=== PATIENT | female | born 1955 | race Caucasian/White ===

== ENCOUNTER 2017-04-12 12:34 | Emergency (ER) | payer OTHER ==
[2017-04-12 12:44] VITALS: BP 159/88; PULSE 61; TEMP 98.4; BMI 27.8
[2017-04-12] MEDS ORDERED: DIPHTH,PERTUSS(ACELL),TET 0.5 ML DISP.SYRIN IM ONE (13:19)
--- NOTE | 2017-04-12 13:30 | PDOC ---
History of Present Illness - General Chief Complaint: Injury Stated Complaint: FALL/ LACERATION Time Seen by Provider: 04/12/17 13:01 History Source: Patient Exam Limitations: No Limitations - History of Present Illness Initial Comments: 04/12/17 13:24 CHIEF COMPLAINT: Accidental fall HISTORY OF PRESENT ILLNESS: Patient is a 62-year-old female with history of hypertension and asthma states she was walking outside tripped on uneven pavement and fell sustained abrasion to right knee, left palm of hand and right forearm. Patient denies hitting her head, denies any musculoskeletal pain, denies any other injury. Tetanus is not up-to-date. MEDS: See medication list ALLERGIES: Aspirin, IV contrast REVIEW OF SYSTEMS: GENERAL/CONSTITUTIONAL: Awake alert and oriented HEAD, EYES, EARS, NOSE AND THROAT: No change in vision. No facial edema, no bruising. NO active bleeding. Nares intact. RESPIRATORY: No cough, wheezing, or hemoptysis. CARDIAC: Denies chest pain, no shortness of breathe. MUSCULOSKELETAL: No spinal point tenderness, Good ROM to all four extremeties. NO CVA tenderness. no lateral neck pain. GI/: Denies abdominal pain, no nausea or vomiting, no bloody stool, no Hematuria. SKIN : Abrasion to right forearm, left palm of hand and right knee, superficial NEUROLOGIC: No loss of consciousness, no numbness or tingling. PHYSICAL EXAM: GENERAL: Awake and alert and oriented x3. EYES: The pupils are equal, round, and reactive to light, with clear, conjunctiva. Good extraocular movement. No nystagmus NOSE: No nasal trauma . Midface stable MOUTH: Teeth intact. EARS: The ear canals and tympanic membranes are normal without trauma. No drainage. NECK: No Lower cervical C-spine tenderness, no pain with chin to chest. CHEST: The lungs are clear without crackles, or wheezes. No subcutaneous emphysema. No crepitus. HEART: Heart is regular rhythm, with normal S1 and S2, no murmurs. ABDOMEN: The abdomen is soft and nontender with normal bowel sounds. There is no guarding or rebound. MUSCULOSKELETAL: No spinal point tenderness. No bruising or erythema. Pelvis stable. EXTREMITIES: Extremities are normal. No visible traumatic injury. NEUROLOGICAL:Mental status: The patient is oriented x3. No Generalized headache , Romberg - Cranial nerves: Cranial nerves II through XII are intact Motor: The upper extremities are 5 over 5 in all muscle groups. The lower extremities are 5 over 5 in all muscle groups. Sensation: Sensation is intact to light touch throughout. Cerebellar: [id number] is normal in both upper extremities. Heel-knee- chappell is normal in both lower extremities. Reflexes: 2+ and symmetric in the upper and lower extremities. Gait: Normal. Heel and toe walking are normal. Tandem gait is normal. SKIN: Without edema, erythema or bruising. Abrasion to right forearm, left palm of hand and right knee, superficial Past History - Past Medical History Allergies/Adverse Reactions: Allergies Allergy/AdvReac Type Severity Reaction Status Date / Time aspirin Allergy Severe SWOLLEN Verified 04/12/17 12:43 FACE Iodinated Contrast- Oral and Allergy HYPOTENSION Verified 04/12/17 12:43 IV Dye [IV Dye, Iodine Containing Contrast ] SEAFOOD Allergy Severe SWOLLEN Uncoded 04/12/17 12:43 THROAT Home Medications: Ambulatory Orders Atenolol [Tenormin -] 50 mg PO DAILY 07/21/12 Gabapentin [Neurontin -] 800 mg PO BID 05/05/13 Anemia: No Asthma: Yes Cancer: No Cardiac Disorders: Yes (HEART MURMUR, MVP) CVA: No COPD: No CHF: No Dementia: No Diabetes: No GI Disorders: Yes (GASTRITIS) Disorders: Yes (RENAL CALCULI) HTN: Yes Hypercholesterolemia: Yes Liver Disease: No Seizures: No Thyroid Disease: No - Surgical History Abdominal Surgery: No Appendectomy: No Cardiac Surgery: No Cholecystectomy: No Lung Surgery: No Neurologic Surgery: Yes (BACK SX X3 SCREW INSERTED) Orthopedic Surgery: No - Immunization History Immunization Up to Date: No - Suicide/Smoking/Psychosocial Hx Smoking Status: No Smoking History: Never smoked Number of Cigarettes Smoked Daily: 0 Hx Alcohol Use: No Drug/Substance Use Hx: No Substance Use Type: None Hx Substance Use Treatment: No *Physical Exam - Vital Signs Last Vital Signs Temp Pulse Resp BP Pulse Ox 98.4 F 61 18 159/88 98 04/12/17 12:38 04/12/17 12:38 04/12/17 12:38 04/12/17 12:38 04/12/17 12:38 Medical Decision Making - Medical Decision Making 04/12/17 13:30 A/P: Patient status post mechanical fall, accidental, abrasions noted as previously documented, area cleansed with normal saline and bacitracin applied. Dressing applied. Boostrix given. Patient can take Motrin as needed for pain , follow-up as needed *DC/Admit/Observation/Transfer Diagnosis at time of Disposition: Abrasions of multiple sites Accidental fall Qualifiers: Encounter type: initial encounter Qualified Code(s): W19.XXXA - Unspecified fall, initial encounter; W19.XXXA - Unspecified fall, initial encounter - Discharge Dispostion Disposition: HOME Condition at time of disposition: Good Admit: No - Referrals Referrals: Matheus Morley MD [Primary Care Provider] - - Patient Instructions Additional Instructions: Keep areas clean and dry, with any increased redness swelling or signs of infection return to ER. Please note that her tetanus is now up to date. Recommend bacitracin daily, cleanse areas prior to application and keep covered until healed.
== END 2017-04-12 13:35 | disposition home or self-care (01) ==
LOC: SUPCPDRO 12:34 → JERFT 12:34
PROC: 3E0234Z Introduction of Serum, Toxoid and Vaccine into Muscle, Percutaneous Approach (ICD-10-PCS; principal; 2017-04-12)
DX: T14.8XXA Other injury of unspecified body region, initial encounter (principal); W01.0XXA Fall on same level from slipping, tripping and stumbling without subsequent striking against object, initial encounter; Y93.89 Activity, other specified; Y92.410 Unspecified street and highway as the place of occurrence of the external cause; I10 Essential (primary) hypertension; J45.909 Unspecified asthma, uncomplicated; R01.1 Cardiac murmur, unspecified; E78.00 Pure hypercholesterolemia, unspecified
CPT/HCPCS: 90471; 90715; 99281-25

== ENCOUNTER 2018-10-12 23:21 | Emergency (ER) | payer OTHER ==
--- NOTE | 2018-10-12 23:48 | PDOC ---
History of Present Illness - History of Present Illness Initial Comments: 10/13/18 00:45 The patient is a 63 year old female, with a significant past medical history of asthma, HTN, murmur, migraines, and recent back surgery, who presents to the emergency department for wound check. Patient notes recent neurosurgery with Dr. German to remove a bony overgrowth after a spinal fusion surgery in . Her surgery was done 10/07 and discharged 10/09 with visiting nurse follow-up 4 days ago and follow-up with her surgeon 10/21. She notes discomfort to the incision site rated a 6/10. She denies any decrease strength or sensation. She denies recent fevers, chills , headache or dizziness. She denies recent nausea, vomit, diarrhea or constipation. She denies recent dysuria, frequency, urgency or hematuria. She denies recent chest pain or shortness of breath. Allergies: Aspirin, contrast, seafood. Social history: Nonsmoker. Denies EtOH use and recreational drug use. Primary Care Physician: Dr. Austin Morley <Gerardo Nugent - Last Filed: 10/13/18 00:44> <Yessi Cummings - Last Filed: 10/13/18 06:36> - General Stated Complaint: POST SURGERY PROBLEM Past History <Gerardo Nugent - Last Filed: 10/13/18 00:44> - Past Medical History Anemia: No Asthma: Yes Cancer: No Cardiac Disorders: Yes (HEART MURMUR, MVP) CVA: No COPD: No CHF: No Dementia: No Diabetes: No GI Disorders: Yes (GASTRITIS) Disorders: Yes (RENAL CALCULI) HTN: Yes Hypercholesterolemia: Yes Liver Disease: No Seizures: No Thyroid Disease: No - Surgical History Abdominal Surgery: No Appendectomy: No Cardiac Surgery: No Cholecystectomy: No Lung Surgery: No Neurologic Surgery: Yes (BACK SX X3 SCREW INSERTED) Orthopedic Surgery: No - Immunization History Immunization Up to Date: No - Suicide/Smoking/Psychosocial Hx Smoking Status: No Smoking History: Never smoked Number of Cigarettes Smoked Daily: 0 Hx Alcohol Use: No Drug/Substance Use Hx: No Substance Use Type: None Hx Substance Use Treatment: No <Yessi Cummings - Last Filed: 10/13/18 06:36> - Past Medical History Allergies/Adverse Reactions: Allergies Allergy/AdvReac Type Severity Reaction Status Date / Time aspirin Allergy Severe SWOLLEN Verified 10/13/18 06:28 FACE Iodinated Contrast- Oral and Allergy HYPOTENSION Verified 10/13/18 06:28 IV Dye [IV Dye, Iodine Containing Contrast ] SEAFOOD Allergy Severe SWOLLEN Uncoded 10/13/18 06:28 THROAT Home Medications: Ambulatory Orders Atenolol [Tenormin -] 50 mg PO DAILY 07/21/12 Gabapentin [Neurontin -] 800 mg PO BID 05/05/13 Acetaminophen W/ Codeine #3 [Tylenol # 3 -] 2 tab PO TID #24 tablet MDD 6 Acetaminophen/Caffeine/Butalb [Fioricet -] 1 tablet PO PRN PRN 10/13/18 Omeprazole Magnesium [Prilosec Otc] 40 mg PO DAILY 10/13/18 Review of Systems - Review of Systems Able to Perform ROS?: Yes Comments:: 10/13/18 00:45 GENERAL/CONSTITUTIONAL: No fever or chills. No weakness. HEAD, EYES, EARS, NOSE AND THROAT: No change in vision. No ear pain or discharge. No sore throat. CARDIOVASCULAR: No chest pain or shortness of breath. RESPIRATORY: No cough, wheezing, or hemoptysis. GASTROINTESTINAL: No nausea, vomiting, diarrhea or constipation. GENITOURINARY: No dysuria, frequency, or change in urination. MUSCULOSKELETAL: +Back pain. No joint or muscle swelling or pain. No neck pain. SKIN: No rash NEUROLOGIC: No headache, vertigo, loss of consciousness, or change in strength/ sensation. ENDOCRINE: No increased thirst. No abnormal weight change. HEMATOLOGIC/LYMPHATIC: No anemia, easy bleeding, or history of blood clots. ALLERGIC/IMMUNOLOGIC: No hives or skin allergy. All Other Systems: Reviewed and Negative <Gerardo Nugent - Last Filed: 10/13/18 00:44> *Physical Exam - Vital Signs Last Vital Signs Temp Pulse Resp BP Pulse Ox 98.1 F 61 19 169/74 99 10/12/18 23:21 10/12/18 23:21 10/12/18 23:21 10/12/18 23:21 10/12/18 23:21 - Physical Exam Comments: 10/13/18 00:45 GENERAL: Awake, alert, and fully oriented, in no acute distress HEAD: No signs of trauma EYES: PERRLA, EOMI, sclera anicteric, conjunctiva clear ENT: Auricles normal inspection, hearing grossly normal, nares patent, oropharynx clear without exudates. Moist mucosa NECK: Normal ROM, supple, no lymphadenopathy, JVD, or masses LUNGS: Breath sounds equal, clear to auscultation bilaterally. No wheezes, and no crackles HEART: Regular rate and rhythm, normal S1 and S2, no murmurs, rubs or gallops ABDOMEN: Soft, nontender, normoactive bowel sounds. No guarding, no rebound. No masses BACK: +Well-healing 6in midline scar to T9-L3 without active drainage, surrounding cellulitis, or streaking. EXTREMITIES: Normal range of motion, no edema. No clubbing or cyanosis. No cords, erythema, or tenderness NEUROLOGICAL: Alert, awake, appropriate. Cranial nerves 2-12 intact. No deficits to light touch and temperature in face, upper extremities and lower extremities. No motor deficits in the in face, upper extremities and lower extremities. No pronator drift. Normoreflexic in the upper and lower extremities. Normal speech. Toes are down-going bilaterally. Gait is normal without ataxia. SKIN: Warm, Dry, normal turgor, no rashes or lesions noted. <Gerardo Nugent - Last Filed: 10/13/18 00:44> Medical Decision Making - Medical Decision Making 10/13/18 06:34 Pts surgical scar looks great. Pt has no redness, no leakage, no fever and she appears well. She has no neuro findings. 10/13/18 06:34 Pt will not get labs at this time, as she doesn't requre them. She has been asked to return of she feels worse. She was reassured and she will follow as an outpatient. She states that she was given percocoet for the pain and that it causes vomiting in her and that she'd rather have tyl #3. Pt was prescribed T#3 for the pain. Pt is stable for d/c home. <Yessi Cummings - Last Filed: 10/13/18 06:36> *DC/Admit/Observation/Transfer - Attestations Scribe Attestion: 10/13/18 00:45 Documentation prepared by Gerardo Nugent, acting as center medical director for Yessi Cummings MD. <Gerardo Nugetn - Last Filed: 10/13/18 00:44> - Discharge Dispostion Decision to Admit order: No <Yessi Cummings - Last Filed: 10/13/18 06:36> Diagnosis at time of Disposition: Back pain - Discharge Dispostion Disposition: HOME Condition at time of disposition: Stable - Prescriptions Prescriptions: Acetaminophen W/ Codeine #3 [Tylenol # 3 -] 2 tab PO TID #24 tablet MDD 6 - Patient Instructions Printed Discharge Instructions: How to Care for a Surgical Wound, Eating a Diet Rich in Fruits and Vegetables
[2018-10-13] MEDS ORDERED: ACETAMINOPHEN WITH CODEINE 300MG/30MG TABLET PO ONE (00:17)
[2018-10-13] MEDS ORDERED: ACETAMINOPHEN WITH CODEINE 300MG/30MG TABLET ONE (00:20)
[2018-10-13 00:32] VITALS: BP 169/74; PULSE 61; TEMP 98.1; BMI 29.2
== END 2018-10-13 00:30 | disposition home or self-care (01) ==
LOC: JER 23:21
DX: G89.18 Other acute postprocedural pain (principal); I10 Essential (primary) hypertension; Z87.09 Personal history of other diseases of the respiratory system
CPT/HCPCS: 99281-25

== ENCOUNTER 2022-09-03 04:21 | Day surgery (SDC) | payer OTHER ==
[2022-08-29 12:39] VITALS: BMI 34.5
[~2022-09-03 04:21] MED LIST: BUPIVACAINE HCL/PF 0.25% (2.5MG/ML) 10 ML VIAL IJ ONE; DEXAMETHASONE SOD PHOSPHATE 10 MG/1 ML VIAL IVPUSH ONE; LIDOCAINE HCL 1%, 10 MG/ML (20ML VIAL) NR ONE
[2022-09-03] MEDS ORDERED: BUPIVACAINE HCL/PF 0.25% (2.5MG/ML) 10 ML VIAL ONE (07:20)
[2022-09-03] MEDS ORDERED: LIDOCAINE HCL/PF 1% SDV 5ML VIAL ONE (07:21)
[2022-09-03] MEDS ORDERED: DEXAMETHASONE SOD PHOSPHATE 10 MG/1 ML VIAL ONE (07:21)
[2022-09-03 10:48] VITALS: RESP 18
[2022-09-03] MEDS ORDERED: MIDAZOLAM HCL 2 MG/2 ML SINGLE DOSE VIAL ONE (13:11)
[2022-09-03] MEDS ORDERED: PROPOFOL 20 ML ONE (13:16)
[2022-09-03] MEDS ORDERED: LIDOCAINE HCL 1%, 10 MG/ML (20ML VIAL) NR ONE (13:39)
[2022-09-03] MEDS ORDERED: DEXAMETHASONE SOD PHOSPHATE 10 MG/1 ML VIAL IVPUSH ONE (13:39)
[2022-09-03] MEDS ORDERED: BUPIVACAINE HCL/PF 0.25% (2.5MG/ML) 10 ML VIAL IJ ONE (13:39)
[2022-09-03 14:34] VITALS: PULSE 62
[2022-09-03 14:51] VITALS: BP 144/69; TEMP 97.9
== END 2022-09-03 15:10 | disposition home or self-care (01) ==
LOC: JASU-SURG 04:21
PROVIDERS: ATTEND Physical Medicine & Rehabilitation
PROC: 3E0R3BZ Introduction of Anesthetic Agent into Spinal Canal, Percutaneous Approach (ICD-10-PCS; 2022-09-03)
PROC: 3E0R33Z Introduction of Anti-inflammatory into Spinal Canal, Percutaneous Approach (ICD-10-PCS; principal; 2022-09-03 13:00)
DX: M54.16 Radiculopathy, lumbar region (principal); M54.50 Low back pain, unspecified
CPT/HCPCS: 76000-TC-FY; J1100